=== PATIENT | female | born 1985 | race Caucasian/White ===

== ENCOUNTER 2022-04-25 04:46 | Inpatient (IN) | payer OTHER ==
[~2022-04-25] VITALS: Ht 157.5 cm; Wt 54.4 kg
[2022-04-25] MEDS ORDERED: IV NORMAL SALINE 1000 ML BAG IV ONE ×2 (05:00→07:30)
[2022-04-25] MEDS ORDERED: LORAZEPAM 2 MG/1 ML VIAL ONE (05:08)
[2022-04-25] MEDS ORDERED: HALOPERIDOL LACTATE 5 MG/1 ML VIAL ONE (05:08)
[2022-04-25] MEDS ORDERED: LORAZEPAM 2 MG/1 ML VIAL IM ONE (05:15)
[2022-04-25] MEDS ORDERED: HALOPERIDOL LACTATE 5 MG/1 ML VIAL IM ONE (05:15)
[2022-04-25] MEDS ORDERED: ONDANSETRON 4 MG/2 ML VIAL ONE ×2 (05:40→08:30)
[2022-04-25] MEDS ORDERED: ONDANSETRON 4 MG/2 ML VIAL IV ONE ×2 (05:45→08:00)
[2022-04-25] MEDS ORDERED: ASPIRIN 81 MG TAB.CHEW PO ONE (06:00)
[2022-04-25] MEDS ORDERED: LABETALOL HCL 100 MG/20 ML VIAL IV ONE (06:00)
[2022-04-25] MEDS ORDERED: LABETALOL HCL 100 MG/20 ML VIAL ONE (06:03)
[2022-04-25 06:32] LABS: CARBON DIOXIDE 20 mmol/L (21-32); CHLORIDE 99 mmol/L (98-107); CREATININE 0.9 mg/dL (0.6-1.3); GLUCOSE 114 mg/dL (74-106); UREA NITROGEN, BLOOD 23 mg/dL (7-18)
[2022-04-25 06:36] LABS: HEMATOCRIT 39.7 % (31.2-41.9); MEAN CORPUSCULAR HEMOGLOBIN 34.7 uug (24.7-32.8); MEAN CORPUSCULAR VOLUME 102.1 fL (75.5-95.3); PLATELET COUNT (AUTO) 200 K/uL (179-408)
[2022-04-25 06:48] LABS: ALANINE AMINOTRANSFERASE 388 U/L (14-59); ALKALINE PHOSPHATASE 223 U/L (50-136); ASPARTATE AMINOTRANSFERASE 1438 U/L (15-37); BILIRUBIN,DIRECT 0.5 mg/dL (0.0-0.2); TOTAL PROTEIN, SERUM 7.5 g/dL (6.4-8.2)
[2022-04-25] MEDS ORDERED: POTASSIUM CHLORIDE 20 MEQ TAB.PRT.SR PO ONE (07:30)
[2022-04-25] MEDS ORDERED: POTASSIUM CHLORIDE 20 MEQ TAB.PRT.SR ONE (07:48)
[2022-04-25] MEDS ORDERED: ASPIRIN 81 MG TAB.CHEW ONE (07:48)
--- NOTE | 2022-04-25 09:00 | NUR ---
Received pt. on [facility]. sleeping intermittently
[2022-04-25] MEDS ORDERED: LORAZEPAM 2 MG/1 ML VIAL IV PRN (09:15)
[2022-04-25 10:47] LABS: BAND % (MANUAL) 43 % (0-10); LYMPHOCYTES % (MANUAL) 13 % (20-40); MONOCYTES % (MANUAL) 6 % (2-10); NEUTROPHILS % (MANUAL) 38 % (42-75)
[2022-04-25] MEDS: POTASSIUM CHLORIDE 20 MEQ in IV NS 1000 ML 1,000 ML IV PRN ×3 (11:41→14:50)
--- NOTE | 2022-04-25 12:00 | NUR ---
HR 123, sbp of 114/76, RR 18, saturation of 97% on RA. patient remains sleeping intermittently when awake slightly lethargy noted. Addendum: 04/25/22 at 1502 by MICHAELOS temp of 98.3
--- NOTE | 2022-04-25 16:00 | NUR ---
HR 119 SBP OF 123/70 RR 18 SATURATION OF 98% RA.
[2022-04-25] MEDS ORDERED: POTASSIUM BICARBONATE/CIT AC 25 MEQ TABLET.EFF PO ONE (19:00)
[2022-04-25] MEDS ORDERED: THIAMINE HCL 100 MG TABLET PO ONE (19:15)
[2022-04-25] MEDS ORDERED: POTASSIUM BICARBONATE/CIT AC 25 MEQ TABLET.EFF ONE (19:16)
[2022-04-25] MEDS ORDERED: SWABABLE VALVE TRANSFER SET EA MC ONE (19:27)
[2022-04-25] MEDS ORDERED: IV NORMAL SALINE 250 ML IV ONE (19:27)
[2022-04-25] MEDS ORDERED: IOHEXOL 350 100 ML INFUS..BTL ONE (19:27)
--- NOTE | 2022-04-25 20:15 | NUR ---
Dr. Hong speaking with Dr. Antonio Marcus.
--- NOTE | 2022-04-25 20:15 | NUR ---
Ultrasound at bedside.
[2022-04-25] MEDS ORDERED: MAGNESIUM HYDROXIDE 30 ML LIQUID UDC PO PRN (20:30)
[2022-04-25] MEDS ORDERED: ACETAMINOPHEN 325 MG TABLET PO PRN (20:30)
[2022-04-25] MEDS ORDERED: ONDANSETRON 4 MG/2 ML VIAL IV PRN (20:30)
--- NOTE | 2022-04-25 21:07 | NUR ---
Pt out of ER for CT.
[2022-04-25] MEDS ORDERED: THIAMINE HCL 100 MG TABLET ONE (21:15)
--- NOTE | 2022-04-25 22:44 | NUR ---
Report given to Abdiel NORMAN Tele.
[2022-04-25 23:30] VITALS: BP 123/73
[2022-04-26 00:24] LABS: *BILIRUBIN,URIN NEGATIVE (NEGATIVE); *BLOOD, URINE NEGATIVE (NEGATIVE); *COLOR,URINE YELLOW (YELLOW); *KETONES,URINE TRACE (NEGATIVE); LEUKOCYTE ESTERASE ,URINE NEGATIVE (NEGATIVE); NITRITE, URINE POSITIVE (NEGATIVE); PH,URINE 7.5 (5.0-8.0); UGLUCOSE NEGATIVE (NEGATIVE)
[2022-04-26] MEDS: POTASSIUM CHLORIDE 20 MEQ in IV NS 1000 ML 1,000 ML IV PRN ×2 (00:25→15:54)
[2022-04-26 00:33] LABS: *CLARITY,URINE SLIGHTLY CLOUDY (CLEAR)
[2022-04-26 00:35] LABS: *AMPHETAMINE, URINE POSITIVE (NEGATIVE); *CANNABINOID, URINE POSITIVE (NEGATIVE); *COCCAINE, URINE NEGATIVE (NEGATIVE); *OPIATE, URINE NEGATIVE (NEGATIVE); *PHENCYCLIDINE SCREEN,URINE NEGATIVE (NEGATIVE)
[2022-04-26 00:44] VITALS: BP 110/68
[2022-04-26 04:32] VITALS: BP 113/62
[2022-04-26] MEDS: PANTOPRAZOLE SODIUM 40 MG TABLET.DR PO SCH (06:47)
[2022-04-26 06:49] LABS: HEMATOCRIT 36.7 % (31.2-41.9); MEAN CORPUSCULAR HEMOGLOBIN 34.2 uug (24.7-32.8); PLATELET COUNT (AUTO) 177 K/uL (179-408)
[2022-04-26 07:29] LABS: CREATININE 0.6 mg/dL (0.6-1.3); POTASSIUM 3.7 mmol/L (3.5-5.1)
[2022-04-26 07:34] LABS: BILIRUBIN,TOTAL 1.8 mg/dL (0.2-1.0); MAGNESIUM 1.4 mg/dL (1.8-2.4); PHOSPHOROUS 2.5 mg/dL (2.5-4.9); TOTAL PROTEIN, SERUM 6.8 g/dL (6.4-8.2)
--- NOTE | 2022-04-26 08:00 | NUR ---
Pt sleeping but easily arousable. PT denies any c/o pain. Pt ambulatory to bathroom with minimal assist. Call light is within reach.
[2022-04-26 09:27] LABS: BACTERIA,URINE FEW /HPF (NONE SEEN); SQUAMOUS EPITHELIAL CELL,UR FEW /HPF (NONE SEEN)
[2022-04-26] MEDS: MAGNESIUM SULFATE/D5W 100 ML IV SCH ×4 (09:50→13:33)
[2022-04-26] MEDS ORDERED: MEROPENEM 1 G in IV NORMAL SALINE 100 ML IV ONE (10:00)
[2022-04-26] MEDS: VANCOMYCIN IV 1,000 MG in IV DEXTROSE 5% 250 ML IV SCH ×2 (11:16→19:34)
[2022-04-26 12:00] VITALS: BP 111/60
[2022-04-26] MEDS ORDERED: MAG HYDROX/AL HYDROX/SIMETH 30 ML LIQUID UDC PO PRN (12:45)
--- NOTE | 2022-04-26 13:00 | NUR ---
Dr sahu here to see patient. Awaiting for further orders. Call light is within reach.
[2022-04-26 13:05] LABS: BAND % (MANUAL) 26 % (0-10); LYMPHOCYTES % (MANUAL) 11 % (20-40); MONOCYTES % (MANUAL) 5 % (2-10); NEUTROPHILS % (MANUAL) 58 % (42-75)
[2022-04-26] MEDS: FOLIC ACID 1 MG TABLET PO SCH (13:33)
[2022-04-26] MEDS: THIAMINE HCL 100 MG TABLET PO SCH (13:33)
[2022-04-26] MEDS: MULTIVITAMINS,THERAPEUTIC TABLET PO SCH (13:33)
[2022-04-26 16:05] VITALS: BP 109/62
[2022-04-26] MEDS: MEROPENEM 1 G in IV NORMAL SALINE 100 ML IV SCH (18:17)
[2022-04-26 20:00] VITALS: BP 132/82
[2022-04-27] MEDS: MEROPENEM 1 G in IV NORMAL SALINE 100 ML IV SCH ×3 (01:08→18:12)
[2022-04-27] MEDS: VANCOMYCIN IV 1,000 MG in IV DEXTROSE 5% 250 ML IV SCH (02:07)
[2022-04-27 04:18] VITALS: BP 130/80
[2022-04-27] MEDS: POTASSIUM CHLORIDE 20 MEQ in IV NS 1000 ML 1,000 ML IV PRN (04:47)
[2022-04-27] MEDS: PANTOPRAZOLE SODIUM 40 MG TABLET.DR PO SCH (06:11)
[2022-04-27 06:21] LABS: MEAN CORPUSCULAR HEMOGLOBIN 34.2 uug (24.7-32.8); MEAN CORPUSCULAR VOLUME 103.3 fL (75.5-95.3); PLATELET COUNT (AUTO) 191 K/uL (179-408)
[2022-04-27 06:40] LABS: ALANINE AMINOTRANSFERASE 508 U/L (14-59); ALKALINE PHOSPHATASE 192 U/L (50-136); ASPARTATE AMINOTRANSFERASE 378 U/L (15-37); BILIRUBIN,TOTAL 0.6 mg/dL (0.2-1.0); CARBON DIOXIDE 24 mmol/L (21-32); CHLORIDE 102 mmol/L (98-107); CREATININE 0.5 mg/dL (0.6-1.3); GLUCOSE 101 mg/dL (74-106); MAGNESIUM 2.1 mg/dL (1.8-2.4); PHOSPHOROUS 2.4 mg/dL (2.5-4.9); POTASSIUM 3.5 mmol/L (3.5-5.1); TOTAL PROTEIN, SERUM 7.1 g/dL (6.4-8.2); UREA NITROGEN, BLOOD 10 mg/dL (7-18)
[2022-04-27] MEDS: THIAMINE HCL 100 MG TABLET PO SCH (09:21)
[2022-04-27] MEDS: FOLIC ACID 1 MG TABLET PO SCH (09:21)
[2022-04-27] MEDS: MULTIVITAMINS,THERAPEUTIC TABLET PO SCH (09:22)
--- NOTE | 2022-04-27 11:33 | NUR ---
SW attempted to do assessment with patient and the patient was not arousable. SW will reattempt assessment.
[2022-04-27] MEDS ORDERED: NEUTRA PHOS PACKET PO ONE (12:00)
[2022-04-27 12:19] VITALS: BP 125/82
--- NOTE | 2022-04-27 12:41 | NUR ---
0705-UPON SHIFT EXCHANGE ROUNDS, PATIENT IN BED, ASLEEP, ABLE TO WAKE UP. NO C/O PAIN. ON R/A, NO RESPIRATORY DISTRESS NOTED. ORAL FLUIDS ENCOURAGED TOLERATED AND TAKEN WELL. CALL LIGHT AT REACH, REMINDED TO USE IT FOR HELP EVERY TIME NEEDED. 0900-PATIENT REFUSED TO EAT BREAKFAST STATED SHE WAS TOO TIRED TO EAT. SCHEDULED MEDICATION ADMINISTERED ORDERED, NO ASE NOTED, ORAL FLUIDS TAKEN WELL. 10:00AM-UNABLE TO ADMINISTERED SCHEDULED IV ATB DUE TO CURRENT PERIPHERAL INFILTRATED AND PATIENT REFUSES TO REINSERT, RISKS VS BENEFITS EXPLAINED, STILL REFUSED; OTHER ALTERNATIVES OFFERED, PATIENT CONSENTED FOR A MID LINE INSERTION. NOTIFIED Dr. SHARPE, PER MD. "OK" FOR MID LINE INSERTION. 12:20PM-MID LINE INSERTED TO [facility], PROCEDURE EXPLAINED PRIOR INSERTION, ASEPTIC TECHNIQUE APPLIED. PATIENT TOLERATED WELL PROCEDURE. IVF AND IV ATB INITIATED PREVIOUSLY ORDERED. NO ASE NOTED. MID LINE INFUSING WELL. PATIENT DENIES ANY DISCOMFORT.
--- NOTE | 2022-04-27 12:49 | NUR ---
12:35PM-PATIENT WAS DC'D FROM TELEMETRY MONITORING.
[2022-04-27] MEDS: VANCOMYCIN IV 1,250 MG in IV DEXTROSE 5% 250 ML IV SCH ×2 (12:55→21:05)
--- NOTE | 2022-04-27 13:42 | NUR ---
Social Work consult was requested for a patient on [facility] for substance abuse resources. Patient is a 36-year-old female admitted to the hospital for a meth overdose. Patient presents with anxious mood and congruent affect. Patient appears lethargic with low energy. Patient is alert and oriented X4. Patient states her primary floor coverings salesperson is her Pancho valle ([phone]) and the patient states that [place] [address]. Patient states she is currently unemployed and is receiving SSI disability. Patient states she has a history of substance abuse. Patient refused to answer assessment questions regarding her substance abuse. The toxicology screening reports positive for amphetamine and cannabinoids. ELIOT provided the patient resources for substance abuse from [address] [address] ([phone]), [facility] [address] [facility] [address] ([phone]), and [address] [address] ([phone]). Patient was appreciative of the resources and appears unmotivated for change. SW placed the resources in the patients chart. Patient states she has a history of a psychiatric diagnosis and refused to answer assessment questions regarding her psychiatric diagnosis. ELIOT provided the patient with local mental health resources for [facility] [address] [facility] [place] [address] ([phone]). Patient states her plan for discharge is for her Pancho valle ([phone]) to pick her up and [place] [address].
[2022-04-27 16:18] VITALS: BP 139/84
--- NOTE | 2022-04-27 19:03 | NUR ---
PATIENT CONTINUES ON IVF/ATB THERAPY, NO A/R NOTED; MIDLINE TO GEOVANNY INFUSING WELL WITH SITE INTACT. PATIENT DENIES PAIN. ASSIST WITH ADLS AND NEEDED. ALL NEEDS ANTICIPATED AND MET.
[2022-04-27 20:17] VITALS: BP 119/83
--- NOTE | 2022-04-27 21:41 | NUR ---
Patient in bed at this time, AAOX4, no sob, room air saturation 97%, BRP, call light within easy reach.
[2022-04-27] MEDS: MORPHINE SULFATE 2 MG/1 ML DISP.SYRIN IV PRN (21:57)
[2022-04-28] MEDS: MEROPENEM 1 G in IV NORMAL SALINE 100 ML IV SCH ×2 (01:22→10:35)
[2022-04-28 03:06] LABS: HEPATITIS A AB, TOTAL Positive (Negative)
[2022-04-28 04:00] VITALS: BP 113/79
[2022-04-28] MEDS: POTASSIUM CHLORIDE 20 MEQ in IV NS 1000 ML 1,000 ML IV PRN (04:36)
[2022-04-28] MEDS: PANTOPRAZOLE SODIUM 40 MG TABLET.DR PO SCH (06:02)
[2022-04-28] MEDS: FOLIC ACID 1 MG TABLET PO SCH (10:34)
[2022-04-28] MEDS: MULTIVITAMINS,THERAPEUTIC TABLET PO SCH (10:35)
[2022-04-28] MEDS: VANCOMYCIN IV 1,250 MG in IV DEXTROSE 5% 250 ML IV SCH (10:35)
[2022-04-28] MEDS: THIAMINE HCL 100 MG TABLET PO SCH (10:35)
[2022-04-28] MEDS: MORPHINE SULFATE 2 MG/1 ML DISP.SYRIN IV PRN (11:47)
[2022-04-28 11:52] LABS: MEAN CORPUSCULAR HEMOGLOBIN 34.4 uug (24.7-32.8); MEAN CORPUSCULAR VOLUME 101.9 fL (75.5-95.3); PLATELET COUNT (AUTO) 231 K/uL (179-408)
[2022-04-28 11:54] VITALS: BP 115/80
[2022-04-28 11:59] LABS: ALANINE AMINOTRANSFERASE 322 U/L (14-59); ALKALINE PHOSPHATASE 176 U/L (50-136); ASPARTATE AMINOTRANSFERASE 121 U/L (15-37); BILIRUBIN,TOTAL 0.4 mg/dL (0.2-1.0); CARBON DIOXIDE 25 mmol/L (21-32); CHLORIDE 106 mmol/L (98-107); CREATININE 0.5 mg/dL (0.6-1.3); GLUCOSE 125 mg/dL (74-106); MAGNESIUM 1.7 mg/dL (1.8-2.4); PHOSPHOROUS 4.1 mg/dL (2.5-4.9); POTASSIUM 4.1 mmol/L (3.5-5.1); UREA NITROGEN, BLOOD 14 mg/dL (7-18)
[2022-04-28] MEDS ORDERED: NITR100C11 PO (14:13)
--- NOTE | 2022-04-28 15:58 | NUR ---
PT STABLE ALL MORNING..PT WANTED TO GO HOME TO SEE HER DOG..PRIMARY DOCTOR WAS WAS WORKING ON DISCHARGE PAPERS..PT AND NBSTERLINGFRIEND WAS INFORMED OF DISCHARGE PAPERS BEING WORKED ON..PT APPARENTLY REFUSED TO WAIT AND LEFT ROOM UNNOTICED..SECURITY NOTIFIED..NURSING APPLICATION OPERATIONS ENGINEER NOTIFIED..PT
--- NOTE | 2022-04-28 17:35 | NUR ---
THE NON EMERGENCY OF THE POLICE DEPT WAS NOTIFIED BY THE SECURITY THAT PT ELOPED WITH IV IN LEFT UPPER ARM..NO DISCHARGE ORDERS WAS GIVEN TO PT..
== END 2022-04-28 14:45 | disposition left against medical advice (07) | DRG 918 ==
LOC: ER 04:46 → MEDSURG3 21:00 → TELE3 23:46 → MEDSURG3 04-26 12:43
PROVIDERS: ADMIT Internal Medicine; ATTEND Nurse Practitioner Family
PROC: 05H533Z Insertion of Infusion Device into Right Subclavian Vein, Percutaneous Approach (ICD-10-PCS; principal; 2022-04-27)
PROC: B546ZZA Ultrasonography of Right Subclavian Vein, Guidance (ICD-10-PCS; 2022-04-27)
DX: T43.621A Poisoning by amphetamines, accidental (unintentional), initial encounter (principal); E87.2 Acidosis; N39.0 Urinary tract infection, site not specified; Z16.12 Extended spectrum beta lactamase (ESBL) resistance; R74.01 Elevation of levels of liver transaminase levels; R00.0 Tachycardia, unspecified; K70.10 Alcoholic hepatitis without ascites; Y92.89 Other specified places as the place of occurrence of the external cause; D72.819 Decreased white blood cell count, unspecified; E87.6 Hypokalemia; F10.10 Alcohol abuse, uncomplicated; F41.9 Anxiety disorder, unspecified; Z20.822 Contact with and (suspected) exposure to COVID-19; K76.0 Fatty (change of) liver, not elsewhere classified; Z87.442 Personal history of urinary calculi; D75.89 Other specified diseases of blood and blood-forming organs; B96.20 Unspecified Escherichia coli [E. coli] as the cause of diseases classified elsewhere; F17.210 Nicotine dependence, cigarettes, uncomplicated
CPT/HCPCS: 36415; 70030-TC; 71045; 71275; 83605; 83690; 83735; 84100; 84484; 85025; 86706; 86708; 86803; 87077; 87086; 93005; 93307; A4663; G0378; J1630; J2060; J2185; J2270; J2405; J3370; J3475; J3480; J3490; J7040; J7050; Q9967